=== PATIENT | male | born 1935 | race Caucasian/White ===

== ENCOUNTER 2018-03-19 22:49 | Emergency (ER) | payer MEDICARE, OTHER ==
[2018-03-19 23:04] VITALS: RESP 16; TEMP 98; O2SAT 98
--- NOTE | 2018-03-20 00:34 | ED PDOC ---
Lower Extremity Pain/Injury Time Seen by Provider: 03/19/18 23:41 Chief Complaint (Nursing): Lower Extremity Problem/Injury Chief Complaint (Provider): Lower Extremity Problem/Injury History Per: Patient History/Exam Limitations: no limitations Onset/Duration Of Symptoms: Hrs (5 PM on Monday 03/19) Current Symptoms Are (Timing): Still Present Additional Complaint(s): 82 y/o male presents to the ED with left foot pain after patient dropped a table top on top of left foot. Patient states this occurred at 5 PM today after which he describes a sudden onset pain. He took Alieve and iced his foot a few hours however when he noticed the swelling increased he decided to come to the ED. Swelling is localized to patients first toe and forefoot. Denies any numbness or lesions. PMD: None provided - Ankle/Foot Description Of Injury: Struck With Object (table top) Currently Unable To: Other (swelling) Past Medical History Reviewed: Historical Data, Nursing Documentation, Vital Signs Vital Signs: Last Vital Signs Temp 98.0 F 03/19/18 23:03 Pulse 64 03/19/18 23:03 Resp 16 03/19/18 23:03 BP 168/73 H 03/19/18 23:03 Pulse Ox 98 03/19/18 23:03 - Medical History PMH: No Chronic Diseases - Surgical History Surgical History: Hernia Repair, Tonsillectomy Other surgeries: left ankle surgery - Family History Family History: States: No Known Family Hx - Social History Current smoker - smoking cessation education provided: No Ex-Smoker (has not smoked in the last 12 months): No Alcohol: None Drugs: Denies - Allergies Allergies/Adverse Reactions: Allergies Allergy/AdvReac Type Severity Reaction Status Date / Time No Known Allergies Allergy Verified 03/19/18 23:03 Review of Systems ROS Statement: Except As Marked, All Systems Reviewed And Found Negative Constitutional: Negative for: Fever, Chills Musculoskeletal: Positive for: Foot Pain (left), Other (left foot edema and difficulty with gate) Skin: Negative for: Lesions Neurological: Negative for: Numbness Physical Exam - Physical Exam Appears: Positive for: Non-toxic, In Acute Distress Pulses-Dorsalis Pedis (L): 2+ Extremity: Positive for: Tenderness (to palpitation at the head of hte first and second metatarsals), Pedal Edema, Capillary Refill (less than 2 seconds), Swelling (left foot diffused swelling of the forefoot), Other (first toe diffused with erythema with exquisite pain to palpitation) - ECG O2 Sat by Pulse Oximetry: 98 (RA) Pulse Ox Interpretation: Normal Medical Decision Making Medical Decision Making: Time: 23:03 Impression: Left foot injury contusion versus injury Initial Plan: * Tylenol 975 mg PO * Motrin 600 mg PO * X-Ray of left foot Scribe Attestation: Documented by Shannan Mcmahon acting as a scribe for Marcelino Laura MD. Scribe Attestation: All medical record entries made by the Scribe were at my direction and personally dictated by me. I have reviewed the chart and agree that the record accurately reflects my personal performance of the history, physical exam, medical decision making, and the department course for this patient. I have also personally directed, reviewed, and agree with the discharge instructions and disposition. Disposition - Clinical Impression Clinical Impression: Foot contusion - Disposition Disposition Time: 01:00 Condition: STABLE Patient Signed Over To: Luan Santo Handoff Comments: Pending ER workup, reassessment and final ER disposition
--- NOTE | 2018-03-20 01:26 | ED PDOC ---
- ECG O2 Sat by Pulse Oximetry: 98 (RA) Pulse Ox Interpretation: Normal Medical Decision Making Medical Decision Makin Patient endorsed to me by Dr. Benson pending x-ray. 300 EXAM: XR Left Foot Complete, 3 or More Views CLINICAL HISTORY: 82 years old, male; Pain; Foot; Left; Additional info: Left foot pain S/P trauma TECHNIQUE: Frontal, lateral and oblique views of the left foot. COMPARISON: No relevant prior studies available. FINDINGS: Bones/joints: No acute fracture. No dislocation. Soft tissues: Unremarkable. IMPRESSION: 1. No fracture. 2. If pain persists, suggest splinting and follow up radiographs in 7-10 days. Will amish splint, provide hard soled shoe and refer to podiatry. Disposition - Clinical Impression Clinical Impression: Foot contusion - POA Present On Arrival: None - Disposition Referrals: CHRISTOPHER MOHR,JOSE Tavarez [Other] Podiatry Clinic [Outside] Disposition: Routine/Home Disposition Time: 03:09 Condition: STABLE Instructions: Contusion (DC) Forms: [employer] ([place])
--- NOTE | 2018-03-20 02:54 | RAD ---
EXAM: XR Left Foot Complete, 3 or More Views CLINICAL HISTORY: 82 years old, male; Pain; Foot; Left; Additional info: Left foot pain S/P trauma TECHNIQUE: Frontal, lateral and oblique views of the left foot. COMPARISON: No relevant prior studies available. FINDINGS: Bones/joints: No acute fracture. No dislocation. Soft tissues: Unremarkable. IMPRESSION: 1. No fracture. 2. If pain persists, suggest splinting and follow up radiographs in 7-10 days.
[2018-03-20 03:24] VITALS: BP 152/70; PULSE 82
== END 2018-03-20 03:24 | disposition home or self-care (01) ==
LOC: H.ER 22:49
DX: S90.32XA Contusion of left foot, initial encounter (principal); W22.8XXA Striking against or struck by other objects, initial encounter; Y92.89 Other specified places as the place of occurrence of the external cause